=== PATIENT | female | born 1985 | race African-American/Black ===

== ENCOUNTER 2019-05-22 21:22 | Emergency (ER) | payer OTHER ==
[2019-05-22 21:29] VITALS: BP 115/72; PULSE 108; TEMP 98.4; BMI 42.5
[2019-05-22] MEDS ORDERED: ACETAMINOPHEN 1000 MG/100 ML VIAL (NON FORMULARY) IVPB ONE (22:33)
[2019-05-22] MEDS ORDERED: ONDANSETRON 4 MG/2 ML VIAL IVPUSH ONE (22:33)
[2019-05-22] MEDS ORDERED: SODIUM CHLORIDE 0.9% 500 ML INFUS.BAG IV ONE (22:33)
[2019-05-22] MEDS ORDERED: ACETAMINOPHEN INJECTION 100 ML IVPB ONE (22:52)
[2019-05-22] MEDS ORDERED: ONDANSETRON 4 MG/2 ML VIAL ONE (22:52)
[2019-05-22 22:54] LABS: BASO % 0.6 % (0-2.0); EOS % 1.4 % (0-4.5); HEMATOCRIT 37.7 % (32.4-45.2); HEMOGLOBIN 12.3 GM/dL (10.7-15.3); MCH 31.6 pg (25.7-33.7); MCHC 32.5 g/dl (32.0-36.0); MEAN CELL VOLUME 97.2 fl (80-96); MEAN PLT VOLUME 7.7 fl (7.5-11.1); MONO % 8.3 % (3.8-10.2); NEUT % 45.7 % (42.8-82.8); PLATELET COUNT 297 K/MM3 (134-434); RBC 3.88 M/mm3 (3.60-5.2); RDW 14.4 % (11.6-15.6); WHITE BLOOD COUNT 5.4 K/mm3 (4.0-10.0)
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
[2019-05-22 23:18] LABS: ALBUMIN 3.7 g/dl (3.4-5.0); BILIRUBIN,TOTAL 0.2 mg/dL (0.2-1); BLOOD UREA NITROGEN 9.7 mg/dL (7-18); CREATININE 0.7 mg/dL (0.55-1.3); POTASSIUM 4.1 mmol/L (3.5-5.1); TOT PROT 7.6 g/dl (6.4-8.2)
[2019-05-22 23:52] LABS: PH,URINE 5.5 (5.0-8.0); URINE APPEARANCE CLOUDY; URINE BILIRUBIN NEGATIVE (NEGATIVE); URINE COLOR YELLOW; URINE GLUCOSE (UA) NEGATIVE (NEGATIVE); URINE KETONE NEGATIVE (NEGATIVE); URINE LEUK ESTERASE TRACE (NEGATIVE); URINE NITRITE NEGATIVE (NEGATIVE); URINE PROTEIN NEGATIVE (NEGATIVE); URINE UROBILINOGEN 0.2 mg/dL (0.2-1.0)
--- NOTE | 2019-05-22 23:52 | PDOC ---
*Physical Exam - Vital Signs Last Vital Signs Temp Pulse Resp BP Pulse Ox 98.4 F 108 H 18 115/72 96 05/22/19 21:27 05/22/19 21:27 05/22/19 21:27 05/22/19 21:27 05/22/19 21:27 ED Treatment Course - LABORATORY CBC & Chemistry Diagram: 05/22/19 22:45 05/22/19 22:45 - ADDITIONAL ORDERS Additional order review: Laboratory Results 05/22/19 05/22/19 22:45 22:45 Sodium 143 Potassium 4.1 Chloride 107 Carbon Dioxide 27 Anion Gap 8 BUN 9.7 Creatinine 0.7 Est GFR (CKD-EPI)AfAm 130.10 Est GFR (CKD-EPI)NonAf 112.25 Random Glucose 108 H Calcium 9.0 Total Bilirubin 0.2 AST 19 ALT 22 Alkaline Phosphatase 97 Total Protein 7.6 Albumin 3.7 Lipase 125 Serum , Qual Negative Alcohol, Quantitative 275.9 H 05/22/19 22:45 RBC 3.88 MCV 97.2 H MCHC 32.5 RDW 14.4 MPV 7.7 Neutrophils % 45.7 Lymphocytes % 44.0 H Monocytes % 8.3 Eosinophils % 1.4 Basophils % 0.6 - Medications Given in the ED: ED Medications Discontinued Medications Generic Name Dose Route Start Last Admin Trade Name Naveen PRN Reason Stop Dose Admin Acetaminophen 1,000 mg 05/22/19 22:33 05/22/19 22:59 Ofirmev Injection - IVPB 05/22/19 22:34 1,000 mg ONCE ONE Administration Ondansetron HCl 4 mg 05/22/19 22:33 05/22/19 22:59 Zofran Injection IVPUSH 05/22/19 22:34 4 mg NOW ONE Administration Sodium Chloride 1,000 ml 05/22/19 22:33 05/22/19 22:59 Normal Saline - IV 05/22/19 22:34 1,000 ml ONCE ONE Administration Medical Decision Making - Medical Decision Making 05/22/19 23:50 3 wks of abdominal pain and vomiting likely acute gastritis cmp cbc unremarkable, not Inteventions so far 1LNS and zofran, tylenol feeling much better Pending UA and Periumbilical u/s to rule out hernia Dispo: If all well discharge home *DC/Admit/Observation/Transfer - Referrals Referrals: Gianfranco Vanessa MD [Primary Care Provider] - - Patient Instructions - Post Discharge Activity
[2019-05-23 00:47] LABS: EPI CELLS F /HPF (0-5/HPF); URINE BACTERIA FEW /hpf (NEGATIVE)
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
[2019-05-23 01:54] LABS: ANISOCYTOSIS 0; HELMET CELLS 0; HOWELL-JOLLY BODIES 0; MACROCYTOSIS 0; OVALOCYTE 0; PLATELET ESTIMATE NORMAL; ROULEAU 0; SICKELED CELLS 0; TARGET CELLS 0; TEAR DROP CELLS 0; TOXIC GRANULATION 0
== END 2019-05-23 01:26 | disposition home or self-care (01) ==
LOC: JER 21:22
PROC: 3E033GC Introduction of Other Therapeutic Substance into Peripheral Vein, Percutaneous Approach (ICD-10-PCS; principal; 2019-05-22)
PROC: 3E033NZ Introduction of Analgesics, Hypnotics, Sedatives into Peripheral Vein, Percutaneous Approach (ICD-10-PCS; 2019-05-22)
DX: K29.20 Alcoholic gastritis without bleeding (principal); F10.120 Alcohol abuse with intoxication, uncomplicated; Y90.8 Blood alcohol level of 240 mg/100 ml or more; J45.909 Unspecified asthma, uncomplicated; F17.210 Nicotine dependence, cigarettes, uncomplicated
CPT/HCPCS: 36415; 76705-TC; 80053; 80307; 81003; 83690; 84703; 85025; 87086; 99283-25; J0131

== ENCOUNTER 2019-05-23 14:09 | Emergency (ER) | payer OTHER ==
--- NOTE | 2019-05-23 14:18 | PDOC ---
Rapid Medical Evaluation Time Seen by Provider: 05/23/19 14:16 Medical Evaluation: Allergies Allergy/AdvReac Type Severity Reaction Status Date / Time No Known Allergies Allergy Verified 05/22/19 21:27 05/23/19 14:16 HPI: Seen last night but had to leave she continues to have abdominal pain related to hernia PE: No gross deficits ORDERS: Labs
[2019-05-23 14:20] VITALS: BP 130/81; PULSE 87; TEMP 98.3; BMI 42.7
--- NOTE | 2019-05-23 14:46 | PDOC ---
History of Present Illness - General Chief Complaint: Pain Stated Complaint: ABDOMINAL PAIN Time Seen by Provider: 05/23/19 14:16 History Source: Patient Exam Limitations: No Limitations Past History - Travel Traveled outside of the country in the last 30 days: No Close contact w/someone who was outside of country & ill: No - Past Medical History Allergies/Adverse Reactions: Allergies Allergy/AdvReac Type Severity Reaction Status Date / Time No Known Allergies Allergy Verified 05/23/19 14:18 Home Medications: Ambulatory Orders Albuterol 0.083% Nebulizer Marissa [Ventolin 0.083%] 1 neb NEB Q4H 05/23/19 Albuterol Sulfate [Albuterol Sulfate Hfa] 1 - 2 puff IH Q4H PRN 05/23/19 Asthma: Yes COPD: No - Suicide/Smoking/Psychosocial Hx Smoking History: Current every day smoker Number of Cigarettes Smoked Daily: 20 Information on smoking cessation initiated: No Review of Systems - Review of Systems Able to Perform ROS?: Yes Comments:: 05/23/19 14:45 CONSTITUTIONAL: Absent: fever, chills, diaphoresis, generalized weakness, malaise, loss of appetite HEENT: Absent: rhinorrhea, nasal congestion, throat pain, throat swelling, difficulty swallowing, mouth swelling, ear pain, eye pain, visual Changes CARDIOVASCULAR: Absent: chest pain, loss of consciousness, palpitations, irregular heart rate, peripheral edema RESPIRATORY: Absent: cough, shortness of breath, dyspnea with exertion, orthopnea, wheezing, stridor, hemoptysis GASTROINTESTINAL: Present: abdominal pain Absent: abdominal distension, nausea, vomiting, diarrhea , constipation, melena, hematochezia GENITOURINARY: Absent: dysuria, frequency, urgency, hesitancy, hematuria, flank pain, genital pain MUSCULOSKELETAL: Absent: myalgia, arthralgia, joint swelling SKIN: Absent: rash, itching, pallor HEMATOLOGIC/IMMUNOLOGIC: Absent: easy bleeding, easy bruising, lymphadenopathy, frequent infections ENDOCRINE: Absent: unexplained weight gain, unexplained weight loss, heat intolerance, cold intolerance NEUROLOGIC: Absent: headache, focal weakness or paresthesias, dizziness, unsteady gait, seizure, mental status changes, bladder or bowel incontinence PSYCHIATRIC: Absent: anxiety, depression, suicidal or homicidal ideation, hallucinations. Is the patient limited Bulgarian proficient: No *Physical Exam - Vital Signs Last Vital Signs Temp Pulse Resp BP Pulse Ox 98.3 F 87 18 130/81 96 05/23/19 14:19 05/23/19 14:19 05/23/19 14:19 05/23/19 14:19 05/23/19 14:19 - Physical Exam Comments: 05/23/19 14:45 GENERAL: Well developed, well nourished. Awake and alert. No acute distress. HEENT: Normocephalic, atraumatic. PERRLA, EOMI. No conjunctival pallor. Sclera are non- icteric. Moist mucous membranes. Oropharynx is clear. NECK: Supple. Full ROM. No JVD. Carotid pulses 2+ and symmetric, without bruits. No thyromegaly. No lymphadenopathy. CARDIOVASCULAR: Regular rate and rhythm. No murmurs, rubs, or gallops. Distal pulses are 2+ and symmetric. PULMONARY: No evidence of respiratory distress. Lungs clear to auscultation bilaterally. No wheezing, rales or rhonchi. ABDOMINAL: TTP with hernia felt along r side of the surgical scar. Soft. Non-distended. No rebound or guarding. No organomegaly. Normoactive bowel sounds. MUSCULOSKELETAL Normal range of motion at all joints. No bony deformities or tenderness. No CVA tenderness. EXTREMITIES: No cyanosis. No clubbing. No edema. No calf tenderness. SKIN: Warm and dry. Normal capillary refill. No rashes. No jaundice. NEUROLOGICAL: Alert, awake, appropriate. Cranial nerves 2-12 intact. No deficits to light touch and temperature in face, upper extremities and lower extremities. No motor deficits in the in face, upper extremities and lower extremities. Normoreflexic in the upper and lower extremities. Normal speech. Toes are down- going bilaterally. Gait is normal without ataxia. PSYCHIATRIC: Cooperative. Good eye contact. Appropriate mood and affect. ED Treatment Course - LABORATORY CBC & Chemistry Diagram: 05/23/19 14:38 05/23/19 14:38 Medical Decision Making - Medical Decision Making 05/23/19 16:13 The patient is a 33 y/o F with no PMH who presents to the ER for evaluation for abdominal pain. The patient states that she has a hernia which has been causing her pain. She notes that she was evaluated in the ER last night however had to leave midway through her evaluation to see her sick grandmother. She notes that she is still having some right-sided abdominal pain. She states that the pain is getting worse. She states she did have a bowel movement today and is passing gas. Denies fevers, chills, nausea, vomiting, constipation and urinary symptoms. A/P: Abdominal pain On exam patient with right periumbilical pain with a nonreducible hernia felt. Labs and ultrasound reviewed from last night, no acute obstruction CTAP with oral contrast added on to last night's evaluation to rule out strangulation Patient to go to ultrasound at 7 PM after drinking lab results are unremarkable at this time, no UTI. Signout given to MORE Ingram pending CT results. *DC/Admit/Observation/Transfer Diagnosis at time of Disposition: Ventral hernia without obstruction or gangrene - Discharge Dispostion Disposition: HOME - Referrals Referrals: Yevgeniy Soto MD [Staff Physician] - Call tomorrow Gianfranco Vanessa MD [Primary Care Provider] - - Patient Instructions Printed Discharge Instructions: Abdominal Hernia Additional Instructions: please follow up with surgery as soon as possible. return to the ER for any worsening symptoms. - Post Discharge Activity Forms/Work/School Notes: Back to Work
[2019-05-23 14:53] LABS: BASO % 1.2 % (0-2.0); HEMOGLOBIN 12.4 GM/dL (10.7-15.3); LYMPH % 30.8 % (8-40); MCH 31.7 pg (25.7-33.7); MCHC 32.5 g/dl (32.0-36.0); MEAN CELL VOLUME 97.4 fl (80-96); MEAN PLT VOLUME 7.7 fl (7.5-11.1); MONO % 7.8 % (3.8-10.2); NEUT % 59.2 % (42.8-82.8); PLATELET COUNT 296 K/MM3 (134-434); RDW 14.8 % (11.6-15.6); WHITE BLOOD COUNT 6.8 K/mm3 (4.0-10.0)
[2019-05-23 15:09] LABS: PH,URINE 6.5 (5.0-8.0); URINE APPEARANCE CLEAR; URINE BILIRUBIN NEGATIVE (NEGATIVE); URINE COLOR YELLOW; URINE GLUCOSE (UA) NEGATIVE (NEGATIVE); URINE KETONE NEGATIVE (NEGATIVE); URINE LEUK ESTERASE NEGATIVE (NEGATIVE); URINE NITRITE NEGATIVE (NEGATIVE); URINE PROTEIN NEGATIVE (NEGATIVE)
[2019-05-23] MEDS ORDERED: SODIUM CHLORIDE 1,000 ML IV STA (15:10)
[2019-05-23] MEDS ORDERED: ACETAMINOPHEN 1000 MG/100 ML VIAL (NON FORMULARY) IVPB ONE (15:10)
[2019-05-23 15:23] LABS: ALBUMIN 3.8 g/dl (3.4-5.0); BILIRUBIN,TOTAL 0.3 mg/dL (0.2-1); BLOOD UREA NITROGEN 8.5 mg/dL (7-18); CALCIUM 9.4 mg/dL (8.5-10.1); CREATININE 0.7 mg/dL (0.55-1.3); POTASSIUM 4.4 mmol/L (3.5-5.1); TOT PROT 7.8 g/dl (6.4-8.2)
[2019-05-23 15:25] LABS: INR 0.97 (0.83-1.09); PROTHROMBIN TIME (PATIENT) 11.4 SEC (9.7-13.0)
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
[2019-05-23] MEDS ORDERED: ACETAMINOPHEN INJECTION 100 ML IVPB ONE (17:14)
--- NOTE | 2019-05-23 19:34 | PDOC ---
*Physical Exam - Vital Signs Last Vital Signs Temp Pulse Resp BP Pulse Ox 98.3 F 87 18 130/81 96 05/23/19 14:19 05/23/19 14:19 05/23/19 14:19 05/23/19 14:19 05/23/19 14:19 - Physical Exam General Appearance: Yes: Appropriately Dressed Gastrointestinal/Abdominal: positive: Normal Bowel Sounds, Tender, Other (no palpable mass. hernia reducible) ED Treatment Course - LABORATORY CBC & Chemistry Diagram: 05/23/19 14:38 05/23/19 14:38 - ADDITIONAL ORDERS Additional order review: Laboratory Results 05/23/19 05/23/19 05/23/19 14:38 14:38 14:38 PT with INR 11.40 INR 0.97 Sodium Potassium Chloride Carbon Dioxide Anion Gap BUN Creatinine Est GFR (CKD-EPI)AfAm Est GFR (CKD-EPI)NonAf Random Glucose Calcium Total Bilirubin AST ALT Alkaline Phosphatase Total Protein Albumin Lipase Urine Color Yellow Urine Appearance Clear Urine pH 6.5 Ur Specific [place] 1.011 Urine Protein Negative Urine Glucose (UA) Negative Urine Ketones Negative Urine Blood Negative Urine Nitrite Negative Urine Bilirubin Negative Urine Urobilinogen 1.0 Ur Leukocyte Esterase Negative Urine HCG, Qual Negative 05/23/19 14:38 PT with INR INR Sodium 138 Potassium 4.4 Chloride 104 Carbon Dioxide 26 Anion Gap 8 BUN 8.5 Creatinine 0.7 Est GFR (CKD-EPI)AfAm 130.10 Est GFR (CKD-EPI)NonAf 112.25 Random Glucose 85 Calcium 9.4 Total Bilirubin 0.3 AST 17 ALT 23 Alkaline Phosphatase 86 Total Protein 7.8 Albumin 3.8 Lipase 94 Urine Color Urine Appearance Urine pH Ur Specific [place] Urine Protein Urine Glucose (UA) Urine Ketones Urine Blood Urine Nitrite Urine Bilirubin Urine Urobilinogen Ur Leukocyte Esterase Urine HCG, Qual 05/23/19 14:38 RBC 3.90 MCV 97.4 H MCHC 32.5 RDW 14.8 MPV 7.7 Neutrophils % 59.2 D Lymphocytes % 30.8 D Monocytes % 7.8 Eosinophils % 1.0 Basophils % 1.2 - Medications Given in the ED: ED Medications Discontinued Medications Generic Name Dose Route Start Last Admin Trade Name Freq PRN Reason Stop Dose Admin Acetaminophen 1,000 mg 05/23/19 15:10 05/23/19 16:30 Ofirmev Injection - IVPB 05/23/19 15:11 1,000 mg ONCE ONE Administration Sodium Chloride 1,000 mls @ 1,000 mls/hr 05/23/19 15:10 05/23/19 16:30 Normal Saline - IV 05/23/19 16:09 1,000 mls/hr ASDIR STA Administration *DC/Admit/Observation/Transfer Diagnosis at time of Disposition: Ventral hernia without obstruction or gangrene - Discharge Dispostion Disposition: HOME - Referrals Referrals: Gianfranco Vanessa MD [Primary Care Provider] - Yevgeniy Soto MD [Staff Physician] - Call tomorrow - Patient Instructions Printed Discharge Instructions: Abdominal Hernia Additional Instructions: please follow up with surgery as soon as possible. return to the ER for any worsening symptoms. - Post Discharge Activity Forms/Work/School Notes: Back to Work
== END 2019-05-23 20:52 | disposition home or self-care (01) ==
LOC: JER 14:09
PROC: 3E033NZ Introduction of Analgesics, Hypnotics, Sedatives into Peripheral Vein, Percutaneous Approach (ICD-10-PCS; principal; 2019-05-23)
DX: K43.9 Ventral hernia without obstruction or gangrene (principal); J45.909 Unspecified asthma, uncomplicated
CPT/HCPCS: 36415; 74177-TC; 80053; 81003; 83690; 84703; 85025; 85610; 87086; 99282-25; J0131; J7030; Q9967

== ENCOUNTER 2020-02-29 22:57 | Emergency (ER) | payer OTHER ==
[2020-02-29 23:45] VITALS: BP 105/61
[2020-03-01] MEDS ORDERED: ACETAMINOPHEN 1000 MG/100 ML VIAL (NON FORMULARY) IVPB ONE (00:04)
[2020-03-01] MEDS ORDERED: LIDOCAINE VISCOUS 2% ORAL/TOP 20 ML UNIT-DOSE CUP MM ONE (00:04)
[2020-03-01] MEDS ORDERED: FAMOTIDINE 20 MG/50 ML IVPB 20 MG/50 ML MG IVPB ONE ×2 (00:04→00:21)
[2020-03-01] MEDS ORDERED: SODIUM CHLORIDE 1,000 ML IV STA (00:04)
[2020-03-01] MEDS ORDERED: MAG HYDROX/AL HYDROX/SIMETH 30 ML UNIT-DOSE CUP PO ONE (00:04)
[2020-03-01] MEDS ORDERED: MAG HYDROX/AL HYDROX/SIMETH 30 ML UNIT-DOSE CUP ONE (00:10)
[2020-03-01] MEDS ORDERED: ACETAMINOPHEN INJECTION 100 ML IVPB ONE (00:20)
[2020-03-01 00:36] VITALS: TEMP 97.4; BMI 39.5
[2020-03-01 00:41] LABS: BASO % 1.2 % (0-2.0); EOS % 1.3 % (0-4.5); HEMATOCRIT 37.6 % (32.4-45.2); HEMOGLOBIN 12.4 GM/dL (10.7-15.3); LYMPH % 52.8 % (8-40); MCH 32.4 pg (25.7-33.7); MCHC 32.9 g/dl (32.0-36.0); MEAN CELL VOLUME 98.5 fl (80-96); MEAN PLT VOLUME 7.7 fl (7.5-11.1); MONO % 8.8 % (3.8-10.2); NEUT % 35.9 % (42.8-82.8); PLATELET COUNT 345 K/MM3 (134-434); RBC 3.81 M/mm3 (3.60-5.2); RDW 15.4 % (11.6-15.6); WHITE BLOOD COUNT 5.2 K/mm3 (4.0-10.0)
--- NOTE | 2020-03-01 00:55 | PDOC ---
History of Present Illness - General Chief Complaint: Pain Stated Complaint: ABDOMINAL PAIN Time Seen by Provider: 02/29/20 23:57 History Source: Patient Exam Limitations: No Limitations - History of Present Illness Initial Comments: Pt is a 34 yo F, with PMH of schizophrenia, bipolar disease, and asthma, who is presenting with complaints of upper abdominal pain x2 months. Pt has had a recent visit for the same issue, with CT scan that showed no acute pathology at that time. Pt states the pain is the same since that time, but has not seen GI or taken her prescribed medications. Pt also endorses intermittent NBNB vomiting during this time. Pt is intoxicated and cannot provide reliable ROS. Allergies: NKDA Social: Pt smokes ~1/4 ppd and drinks about a pint of liquor 2-3 x/week. Pt denies any recent travel or sick contacts. Surgical: no relevant history. Family: no relevant history. 03/15/20 07:28 Past History - Travel History Traveled outside of the country in the last 30 days: No Close contact w/someone who was outside of country & ill: No - Medical History Allergies/Adverse Reactions: Allergies Allergy/AdvReac Type Severity Reaction Status Date / Time No Known Allergies Allergy Verified 03/01/20 00:00 Home Medications: Ambulatory Orders Albuterol 0.083% Nebulizer Marissa [Ventolin 0.083%] 1 neb NEB Q4H 05/23/19 Albuterol Sulfate [Albuterol Sulfate Hfa] 1 - 2 puff IH Q4H PRN 05/23/19 Pantoprazole Sodium [Protonix -] 40 mg PO DAILY #14 tablet.ec 02/09/20 Famotidine [Pepcid] 20 mg PO DAILY #10 tablet 02/11/20 Mag Hydrox/Al Hydrox/Simeth [Mylanta Suspension -] 30 ml PO Q6H PRN #1 bottle 02/11/20 Pantoprazole Sodium [Protonix] 40 mg PO DAILY #30 tablet. 03/05/20 Asthma: Yes COPD: No Psychiatric Problems: Yes (Bipolar/schizo) - Immunization History Immunization Up to Date: No - Psycho-Social/Smoking History Smoking History: Never smoked Have you smoked in the past 12 months: No Number of Cigarettes Smoked Daily: 20 Information on smoking cessation initiated: No - Substance Abuse Hx (Audit-C & DAST Scrn) How often the patient has a drink containing alcohol: Never Score: In Men: 4 or > Positive; In Women: 3 or > Positive: 0 Screen Result (Pos requires Nsg. Audit-10AR): Negative In the last yr the pt used illegal drug/Rx for NonMed reason: No Score: Yes response is considered Positive: 0 Screen Result (Positive result requires Nsg. DAST-10): Negative Review of Systems - Review of Systems Able to Perform ROS?: No (intox) *Physical Exam - Vital Signs Last Vital Signs Temp Pulse Resp BP Pulse Ox 97.4 F L 100 H 18 105/61 98 03/01/20 00:00 03/01/20 00:00 03/01/20 00:00 03/01/20 00:00 03/01/20 00:00 - Physical Exam HR 106, pt afebrile. Pt in NAD, morbidly obese body habitus. Pt alert and oriented to person and place. Slurring speech and smells of alcohol. 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 No midline spinal tenderness, step-offs, or crepitus. Head normocephalic, atraumatic. Eyes PERRLA, EOMI. Oropharynx without erythema or exudates, no LAD b/l. No nasal congestion. Hearing intact. Clear heart sounds, S1/S2, no JVD, b/l pedal edema, or heart murmur. Clear lung sounds, no respiratory distress, wheezes, crackles, or accessory muscle use. +Epigastric tenderness to palpation, with no rebound, no guarding. No CVA TTP. Abdomen soft, non-distended, and with normoactive bowel sounds. Skin without jaundice or rash. 03/15/20 07:48 ED Treatment Course - LABORATORY CBC & Chemistry Diagram: 03/01/20 00:00 03/01/20 00:00 - ADDITIONAL ORDERS Additional order review: 03/01/20 00:00 RBC 3.81 MCV 98.5 H MCHC 32.9 RDW 15.4 MPV 7.7 Neutrophils % 35.9 L D Lymphocytes % 52.8 H D Monocytes % 8.8 Eosinophils % 1.3 D Basophils % 1.2 - Medications Given in the ED: ED Medications Discontinued Medications Generic Name Dose Route Start Last Admin Trade Name Freq PRN Reason Stop Dose Admin Acetaminophen 1,000 mg 03/01/20 00:04 03/01/20 00:26 Ofirmev Injection - IVPB 03/01/20 00:05 1,000 mg ONCE ONE Administration Al Hydroxide/Mg Hydroxide 30 ml 03/01/20 00:04 03/01/20 00:13 Mylanta Oral Suspension - PO 03/01/20 00:05 30 ml ONCE ONE Administration Famotidine/Sodium Chloride 20 mg in 50 mls @ 100 mls/hr 03/01/20 00:04 03/01/20 00:26 Pepcid 20 Mg Premixed Ivpb - IVPB 03/01/20 00:33 100 mls/hr ONCE ONE Administration Lidocaine HCl 20 ml 03/01/20 00:04 03/01/20 00:13 Xylocaine 2% Viscous Oral - MM 03/01/20 00:05 20 ml ONCE ONE Administration Medical Decision Making - Medical Decision Making Pt was seen at bedside, also will be seen by attending Dr. Quinn. Pt presenting with epigastric pain similar to prior visits, with epigastric TTP. Pt intoxicated, no signs of withdrawal at this point. Pt denies lower abdominal, vaginal, or urinary symptoms. Abdomen soft and non-tender and pt has been tolerating PO intake, not consistent with obstruction or acute surgical abdomen. Likely recurring gastritis/ulcer. Provided 1 L IV NS, IV pepcid, GI cocktail for improvement of pain and hydration. Will continue to reassess pt and monitor for symptomatic improvement. Will monitor for withdrawal and clinical sobriety. ECG: NSR, intervals WNL. No TWIs or significant ST segment changes. No significant changes from prior ECG. 03/15/20 08:07 Labs WNL Pts symptoms improved after interventions Pt tolerating PO intake in ED and is ambulatory without assistance. Speaking in full sentences without slurring. Pt calling a taxi to take her home. Pt safe for d/c to home with PCP f/u. Pt has medications sent to the pharmacy, advised pt to take prescribed meds, and counseled about stopping alcohol and cigarette use. 03/15/20 08:09 Discharge - Discharge Information Problems reviewed: Yes Clinical Impression/Diagnosis: Alcohol abuse Gastritis Qualifiers: Gastritis type: unspecified gastritis Chronicity: acute Gastritis bleeding: with bleeding Qualified Code(s): K29.01 - Acute gastritis with bleeding Condition: Improved Disposition: HOME - Admission No - Additional Discharge Information Prescriptions: Pantoprazole Sodium [Protonix] 40 mg PO DAILY #30 tablet.dr - Follow up/Referral Referrals: [facility] [place] [facility] [place] [Provider Group] Izaiah Zhang MD [Staff Physician] - - Patient Discharge Instructions Patient Printed Discharge Instructions: DI for Gastritis Additional Instructions: You were seen in the ER today for abdominal pain. The results of your labs today were normal. Please follow-up with your primary care doctor and GI within 1-2 days to discuss your visit and make sure your symptoms have improved. Please return to the ER if you have any worsening pain, development of fevers or chills, loss of consciousness, inability to tolerate food or fluids, or any other concerns. Please take your medications that were sent to the pharmacy (protonix and pepcid). Please stop drinking alcohol, as this is making your pain worse. - Post Discharge Activity
--- NOTE | 2020-03-01 01:02 | PDOC ---
Documentation entered by Jackie Grant SCRIBE, acting as scribe for Dmitriy Quinn MD. Dmitriy Quinn MD: This documentation has been prepared by the Rudy arana Lincy, SCRIBE, under my direction and personally reviewed by me in its entirety. I confirm that the documentation accurately reflects all work, treatment, procedures, and medical decision making performed by me. Attending Attestation - Resident Resident Name: Hyacinth Mar - ED Attending Attestation I have performed the following: I have examined & evaluated the patient, The case was reviewed & discussed with the resident, I agree w/resident's findings & plan, Exceptions are as noted - HPI HPI: 03/01/20 00:59 The patient is a 34 year old female with past medical history significant for asthma, bipolar and Schizophrenia who presents to the emergency department with abdominal pain. Px is epigastric, burning cramping pain, radiating upwards. No f/c, n/v, d/c, sob, cp, sick contacts, travel - Physicial Exam PE: 03/07/20 19:32 Well appearing, NAD, AOx3 Abd soft, nt, nd, no guarding, no rebound HUNTER, NFD - Medical Decision Making 03/07/20 19:33 Likely alcoholic gastritis, pt has been seen several times for similar presentation with varying degrees of work up, prior recent imaging w/o acute pathology Pt endorses continued frequent etoh/liquor ingestion, has not followed up with pcp, gi f/u labs gi cocktail re-eval labs wnl symptomatically improved dc with pcp, gi f/u Spoke extensively about reducing toxic habits and importance of appropriate follow up. Discharge - Discharge Information Problems reviewed: Yes Clinical Impression/Diagnosis: Alcohol abuse Gastritis Qualifiers: Gastritis type: unspecified gastritis Chronicity: acute Gastritis bleeding: with bleeding Qualified Code(s): K29.01 - Acute gastritis with bleeding Condition: Improved Disposition: HOME - Additional Discharge Information Prescriptions: Pantoprazole Sodium [Protonix] 40 mg PO DAILY #30 tablet.dr - Follow up/Referral Referrals: [facility] [place] [facility] [place] [Provider Group] Izaiah Zhang MD [Staff Physician] - - Patient Discharge Instructions Patient Printed Discharge Instructions: DI for Gastritis Additional Instructions: You were seen in the ER today for abdominal pain. The results of your labs today were normal. Please follow-up with your primary care doctor and GI within 1-2 days to discuss your visit and make sure your symptoms have improved. Please return to the ER if you have any worsening pain, development of fevers or chills, loss of consciousness, inability to tolerate food or fluids, or any other concerns. Please take your medications that were sent to the pharmacy (protonix and pepcid). Please stop drinking alcohol, as this is making your pain worse. - Post Discharge Activity
[2020-03-01 01:03] LABS: ALBUMIN 3.7 g/dl (3.4-5.0); BILIRUBIN,TOTAL 0.3 mg/dL (0.2-1); BLOOD UREA NITROGEN 5.6 mg/dL (7-18); CALCIUM 8.8 mg/dL (8.5-10.1); CREATININE 0.7 mg/dL (0.55-1.3); MAGNESIUM 2.4 mg/dL (1.8-2.4); TOT PROT 7.7 g/dl (6.4-8.2)
[2020-03-01 03:01] VITALS: PULSE 90
--- NOTE | 2020-03-01 10:41 | EKG ---
Test Reason : Blood Pressure : / mmHG Vent. Rate : 090 BPM Atrial Rate : 090 BPM P-R Int : 186 ms QRS Dur : 100 ms QT Int : 382 ms P-R-T Axes : 053 033 045 degrees QTc Int : 467 ms NORMAL SINUS RHYTHM CANNOT RULE OUT INFERIOR INFARCT , AGE UNDETERMINED WHEN COMPARED WITH ECG OF 11-FEB-2020 18:44, NO SIGNIFICANT CHANGE WAS FOUND Confirmed by JESSICA URIAS MD ([id number]) on 03/01/2020 10:41:03 AM Referred By: Confirmed By:JESSICA URIAS MD
== END 2020-03-01 03:16 | disposition home or self-care (01) ==
LOC: JER 22:57
PROC: 3E033GC Introduction of Other Therapeutic Substance into Peripheral Vein, Percutaneous Approach (ICD-10-PCS; principal; 2020-03-01)
DX: K29.01 Acute gastritis with bleeding (principal); F10.10 Alcohol abuse, uncomplicated
CPT/HCPCS: 36415; 80053; 83690; 83735; 85025; 93005; 93010; 99284-25; J0131